=== PATIENT | female | born 1965 | race Caucasian/White ===

== ENCOUNTER → 2021-05-29 10:01 | Outpatient (BNVA) | payer OTHER, SELFPAY | PROVIDERS: Visit Provider Family Medicine | DX: Z01.419 Encounter for gynecological examination (general) (routine) without abnormal findings (principal); Z13.6 Encounter for screening for cardiovascular disorders | CPT/HCPCS: 87624 ==

== ENCOUNTER 2021-06-29 08:13 | Outpatient (CLI) | payer OTHER, SELFPAY ==
--- NOTE | 2021-06-29 08:39 | XR_ITS ---
WS: [id number] PA and lateral chest, 06/29/2021 Clinical Data: history of sarcoidosis Comparison: None. Findings: No nodules, masses or effusions are seen. Patchy interstitial opacities are seen in both hi la and there are interstitial changes extending into the peripheries of both lungs. The heart is norm al. These patchy interstitial changes could represent chronic sarcoidosis but an acute pneumonia is p ossible. The be helpful to compare the current chest x-ray with old chest x-rays and obtain a follow- up chest x-ray in 8-10 days. There are clips in the right upper quadrant from a cholecystectomy. XR/XR chest 2V* [id number] Impression: 1. Patchy interstitial hilar and peripheral opacities which could represent valerio coidosis. 2. However recommend comparing to old chest x-rays and obtaining repeat chest x -ray in 8-10 days to no change.
[2021-06-29 09:02] LABS: Eosinophils # 0.2 10^3/uL (0.0-0.8); Eosinophils % 4.8 %; Hematocrit 44.3 % (37.0-47.0); Lymphocytes % 24.7 %; Mean Corpuscular HGB Conc 33.9 g/dL (30.0-36.0); Mean Corpuscular Hemoglobin 30.3 pg (28.0-34.0); Mean Corpuscular Volume 89.5 fl (81-99); Monocytes # 0.5 10^3/uL (0.2-0.9); Neutrophils # 2.39 10^3/uL (1.8-7.7); Neutrophils % 57.3 %; Nucleated Red Blood Cells % 0 %; Platelet Count 218 10^3/cmm (130-400); Red Blood Count 4.95 10^6/uL (4.1-5.3); Red Cell Distribution Width 12.7 % (12.1-15.1); White Blood Count 4.2 10^3/uL (4.0-10.0)
[2021-06-29 09:29] LABS: Alanine Aminotransferase 14 U/L (0-33); Albumin Level 4.8 g/dL (3.5-5.2); Alkaline Phosphatase 68 IU/L (35-105); Aspartate Amino Transferase 20 U/L (0-32); Blood Urea Nitrogen 12 mg/dL (6-20); Calcium 10.4 mg/dL (8.5-10.5); Carbon Dioxide 27 mmol/L (22-29); Chloride 99 mmol/L (98-107); Chol HDL Ratio 1.92 mg/dL (0.0-4.40); Cholesterol 177 mg/dL (0-200); Globulin 2.8 g/dL (1.3-4.6); Glomerular Filtration Rate 127.6 mL/min (90-130); Glucose 97 mg/dL (65-115); HDL Cholesterol 92 mg/dL (60-100); LDL Cholesterol Calculated 69 mg/dL (50-129); LDL HDL Ratio 0.75 RATIO (0.00-3.22); Osmolality Calculated 284 mOsm/kg (285-295); Sodium 137 mmol/L (136-145); Total Bilirubin 0.7 mg/dL (0.15-1.2); Total Protein 7.6 g/dL (6.6-8.7); Triglycerides 78 mg/dL (0-150)
[2021-06-29 09:32] LABS: Anion Gap 14.4 (5-19); Potassium 3.4 mmol/L (3.5-5.1)
== END 2021-06-29 08:14 | disposition home or self-care (01) ==
PROVIDERS: Visit Provider Family Medicine
DX: Z13.6 Encounter for screening for cardiovascular disorders (principal); D86.9 Sarcoidosis, unspecified
CPT/HCPCS: 36415; 71046; 80053; 80061; 85025

== ENCOUNTER → 2022-09-04 15:51 | Outpatient (BNVA) | payer OTHER, SELFPAY | PROVIDERS: PCP Family Medicine; Visit Provider Family Medicine | DX: Z13.6 Encounter for screening for cardiovascular disorders (principal) | CPT/HCPCS: 80053; 84443; 85025 ==

== ENCOUNTER 2022-09-24 08:17 | Outpatient (CLI) | payer OTHER, SELFPAY ==
--- NOTE | 2022-09-24 08:22 | MM_ITS ---
WS: [id number] BILATERAL SCREENING DIGITAL TOMOSYNTHESIS MAMMOGRAM WITH CAD HISTORY: screening mammogram COMPARISON: 11/30/2019 and 09/25/2018 Bilateral CC and MLO views with tomosynthesis and synthetic mammography submitted. Computer aided det ection analyzed. Breast composition: There are scattered areas of fibroglandular density. No suspicious masses, microc alcifications or architectural distortion. Benign calcifications in each breast. MM/[id number] IMPRESSION: BI-RADS: 2-Benign FOLLOW UP: 1 Year Follow-up
== END 2022-09-24 08:18 | disposition home or self-care (01) ==
PROVIDERS: PCP Family Medicine; Visit Provider Family Medicine
DX: Z12.31 Encounter for screening mammogram for malignant neoplasm of breast (principal)
CPT/HCPCS: 77063; 77067

== ENCOUNTER → 2022-10-03 12:58 | Outpatient (BNVA) | payer OTHER, SELFPAY | PROVIDERS: PCP Family Medicine; Visit Provider Surgery | DX: Z12.11 Encounter for screening for malignant neoplasm of colon (principal); Z86.010 Personal history of colon polyps | CPT/HCPCS: 99024; 99203 ==

== ENCOUNTER → 2023-08-29 11:27 | Outpatient (BNVA) | payer OTHER, SELFPAY | PROVIDERS: PCP Family Medicine; Visit Provider Family Medicine | DX: Z13.6 Encounter for screening for cardiovascular disorders (principal) | CPT/HCPCS: 80053; 80061; 83036; 85025 ==

== ENCOUNTER 2023-09-27 08:17 | Outpatient (CLI) | payer OTHER, SELFPAY ==
--- NOTE | 2023-09-27 08:30 | MM_ITS ---
WS: [id number] VIEWS: MLO and CC views both breasts. 3D digital tomosynthesis is also included in this exam. Comparison made with prior exam of 01/02/2011, 10/03/2018, 11/30/2019, 09/24/2022.. Findings: There was no sign of mass, architectural distortion or suspicious calcification in either breast. The breasts are heterogeneously dense which may obscure small masses MM/[place] [id number] Impression: BI-RADS: 1-Negative FOLLOW-UP: 1 Year Follow-up This mammogram was also analyzed by the Computer Aided Detection System [employer].
== END 2023-09-27 08:18 | disposition home or self-care (01) ==
LOC: RAD 08:17
PROVIDERS: PCP Family Medicine; Visit Provider Family Medicine
DX: Z12.31 Encounter for screening mammogram for malignant neoplasm of breast (principal)
CPT/HCPCS: 77063; 77067

== ENCOUNTER 2024-03-04 08:30 | Day surgery (SDC) | payer OTHER, SELFPAY ==
[2024-03-04 08:42] VITALS: BMI 22.0
[2024-03-04 08:47] VITALS: BP 122/68; PULSE 70; RESP 18; TEMP 36.8; O2SAT 98
[2024-03-04] MEDS: sodium chloride 0.9% 1,000 ML 30 ML IV (08:52)
--- NOTE | 2024-03-04 09:03 | ANES.PREANE2 ---
Pre-Anesthetic Assessment Height/Weight: Height 1.73 m Weight 65.771 kg Temp Pulse Resp BP Pulse Ox O2 Del Method 98.2 F 70 18 122/68 98 Room Air 03/04/24 08:47 03/04/24 08:47 03/04/24 08:47 03/04/24 08:47 03/04/24 08:47 03/04/24 08:47 Operation Date: 03/04/24 09:30 Proposed Procedures p Colonoscopy - 56693,z12.11(Not Applicable) - Ricardo Mccarthy, DO Familial anesthetic complications: Nausea w/ morphine Was Beta Frankie taken within 24 hours: N/A Was Clonidine taken within 24 hours: N/A Last intake: Intake Last Liquid Date 03/03/24 Last Liquid Time 20:30 Last Solid Date 03/02/24 Last Solid Time 18:30 Social No alcohol and No tobacco Exam alert, oriented x 3, clear to auscultation bilaterally and regular rate & rhythm Airway Mallampati: Class I Dentition: full Pulmonary hx sarcoidosis, was told she was in remission, hasn't had any symptoms in years, CXR from 2021 showed Patchy interstitial hilar and peripheral opacities which could represent sarcoidosis. . Anesthetic Plan ASA status: 2 Anesthesia: MAC Risk of > 500 ml blood loss (7ml/kg in children): No Medications/Allergies Home Medications Medication Instructions Recorded Confirmed Last Taken Type cetirizine 10 mg tablet (Allergy 10 mg PO DAILY PRN Allergic 10/21/23 03/02/24 03/03/24 History Relief (cetirizine)) Symptoms olopatadine 0.2 % eye drops 1 drp ophthalmic (eye) DAILY 10/21/23 03/02/24 03/03/24 History Allergies Allergy/AdvReac Type Severity Reaction Status Date / Time gluten Allergy Mild ADR-Diarrhe Verified 03/02/24 09:52 a erythromycin base Allergy ADR-Vomitin Verified 03/04/24 08:39 g Narcotics AdvReac Mild ADR-Vomitin Uncoded 03/02/24 09:52 g Current Medications Generic Name Dose Route Start Last Admin Trade Name Freq PRN Reason Stop Dose Admin Sodium Chloride 1,000 mls @ 30 mls/hr 03/04/24 08:45 03/04/24 08:52 Sodium Chloride 0.9% IV 11/28/24 08:44 30 mls/hr .Q24H KAM Administration PFSH Anesthesia Medical History (Updated 11/13/23 @ 08:03 by Karson Schmid MD) History of colon polyps Sarcoidosis Diagnosed in 2018 Scarring of lung Surgical History Hx of colonoscopy with polypectomy 4 yrs ago History of cholecystectomy H/O left inguinal hernia repair H/O left wrist surgery Family History Father Stroke Mother Cancer cervical Grandfather Diabetes Grandmother Cancer Sister H/O colonoscopy with polypectomy Social History Smoking and tobacco/nicotine status: never used tobacco/nicotine Quit status (tobacco/nicotine): has quit using Second hand smoke exposure: No Alcohol intake: current Substance/Drug Use: never Data Anesthesia Cardiac Studies: No Data to Display
--- NOTE | 2024-03-04 09:34 | PM.HP ---
Providers/Chief Complaint Primary Care Provider: Karson Schmid MD Chief Complaint: Z12.11 History of Present Illness Domi Banuelos is a 59 year old female Review of Systems General: Reports: 10 or more systems reviewed and unremarkable except in HPI and below Medications/Allergies Home Medications Medication Instructions Recorded Confirmed Last Taken Type cetirizine 10 mg tablet (Allergy 10 mg PO DAILY PRN Allergic 10/21/23 03/02/24 03/03/24 History Relief (cetirizine)) Symptoms olopatadine 0.2 % eye drops 1 drp ophthalmic (eye) DAILY 10/21/23 03/02/24 03/03/24 History Allergies Allergy/AdvReac Type Severity Reaction Status Date / Time gluten Allergy Mild ADR-Diarrhe Verified 03/02/24 09:52 a erythromycin base Allergy ADR-Vomitin Verified 03/04/24 08:39 g Narcotics AdvReac Mild ADR-Vomitin Uncoded 03/02/24 09:52 g PFSH Acute PFSH: Medical History (Updated 11/13/23 @ 08:03 by Karson Schmid MD) History of colon polyps Sarcoidosis Diagnosed in 2018 Scarring of lung Surgical History Hx of colonoscopy with polypectomy 4 yrs ago History of cholecystectomy H/O left inguinal hernia repair H/O left wrist surgery Family History Father Stroke Mother Cancer cervical Grandfather Diabetes Grandmother Cancer Sister H/O colonoscopy with polypectomy Social History Smoking and tobacco/nicotine status: never used tobacco/nicotine Quit status (tobacco/nicotine): has quit using Second hand smoke exposure: No Alcohol intake: current Substance/Drug Use: never Vitals/I&O/Wt Last Vital Signs Temp 98.2 F 03/04/24 08:47 Pulse 70 03/04/24 08:47 Resp 18 03/04/24 08:47 BP 122/68 03/04/24 08:47 Pulse Ox 98 03/04/24 08:47 O2 Del Method Room Air 03/04/24 08:47 Weight last 48 hrs Weight 145 lb A&P Assessment and plan (1) History of colon polyps: (2) Colon cancer screening: Plan Colonoscopy Attestations Medical Necessity Statement*: Home Coding Level of Care Code Acute Code for Chg Fwd Diagnoses History of colon polyps Z86.010 Colon cancer screening Z12.11
[2024-03-04 10:00] VITALS: BP 108/64; PULSE 62; RESP 16; O2SAT 100
[2024-03-04 10:16] VITALS: BP 111/72; PULSE 67; RESP 16; O2SAT 98
--- NOTE | 2024-03-04 10:40 | ANE.PACU2 ---
Inpatient post-anesthesia follow up: Airway intact: Yes Vital signs: Temperature 98.2 F Pulse Rate 67 Respiratory Rate 16 Blood Pressure 111/72 Pulse Oximetry 98 Oxygen Delivery Me thod Nasal Cannula Oxygen Flow Rate Fraction of Inspir ed Oxygen Hydration adequate: Yes Nausea and vomiting: No Pain level: 1 Mental status: Baseline
== END 2024-03-04 10:40 | disposition home or self-care (01) ==
PROVIDERS: PCP Family Medicine Adult Medicine; Visit Provider Surgery
PROC: 0DJD8ZZ Inspection of Lower Intestinal Tract, Via Natural or Artificial Opening Endoscopic (ICD-10-PCS; CPT 45378; principal; 2024-03-04 09:30)
DX: Z12.11 Encounter for screening for malignant neoplasm of colon (principal); Z86.0100 Personal history of colon polyps, unspecified; K64.8 Other hemorrhoids
CPT/HCPCS: 45378; J2704; J7030

== ENCOUNTER 2024-09-28 08:13 | Outpatient (CLI) | payer OTHER, SELFPAY ==
--- NOTE | 2024-09-28 08:15 | MM_ITS ---
WS: [id number] BILATERAL SCREENING DIGITAL TOMOSYNTHESIS MAMMOGRAM WITH CAD HISTORY: SCREENING COMPARISON: 09/27/2023, 09/24/2022 Bilateral CC and MLO views with tomosynthesis and synthetic mammography submitted. Computer aided detection analyzed. Breast composition: There are scattered areas of fibroglandular density. No suspicious masses, microcalcifications or architectural distortion. Coarse calcification upper outer quadrant RIGHT breast. MM/MM scr BI tomosynthesis [id number] IMPRESSION: BI-RADS: 2 - Benign. FOLLOW UP: 1 Year Follow-up
== END 2024-09-28 08:14 | disposition home or self-care (01) ==
PROVIDERS: PCP Family Medicine; Visit Provider Family Medicine
DX: Z12.31 Encounter for screening mammogram for malignant neoplasm of breast (principal); R92.323 Mammographic fibroglandular density, bilateral breasts; R92.1 Mammographic calcification found on diagnostic imaging of breast
CPT/HCPCS: 77063; 77067

== ENCOUNTER 2024-11-18 15:47 | Outpatient (CLI) | payer OTHER, SELFPAY ==
--- NOTE | 2024-11-18 16:00 | XR_ITS ---
WS: [id number] Pelvis, 3 views, 11/18/2024 Clinical Data: ISCHIAL BURSITIS Comparison: None. Findings: No fractures or dislocations are seen. The SI joints and pubic symphysis are intact. The soft tissues are not remarkable. The hips show that the femoral heads have lost some of the normal spherical outline. XR/XR pelvis min 3V [id number] Impression: Osteoarthritis of both hips.
== END 2024-11-18 15:48 | disposition home or self-care (01) ==
PROVIDERS: PCP Family Medicine; Visit Provider Family Medicine
DX: M16.0 Bilateral primary osteoarthritis of hip (principal)
CPT/HCPCS: 72190